=== PATIENT | female | born 1960 | race Two or more races ===

== ENCOUNTER 2018-12-29 00:37 | Emergency (ER) | payer OTHER ==
[2018-12-29 01:12] VITALS: TEMP 98.1; BMI 34.5
--- NOTE | 2018-12-29 01:45 | PDOC ---
History of Present Illness - General Chief Complaint: Pain Stated Complaint: ABD PAIN Time Seen by Provider: 12/29/18 01:45 History Source: Patient Exam Limitations: No Limitations - History of Present Illness Initial Comments: Pt is a 58 yo F, with PMH of pre-DM, who is presenting via car from home for nausea and a "burning" sensation from her upper abdomen up to her throat. Pt had this discomfort after she ate spicy pork for dinner. Pt attempted to take pepcid, tylenol, and lemon juice, which provided minimal relief. Pt has had similar pain before, which normally resolves after she takes pepcid or baking soda. She denies any NSAID use, and has never seen a GI doctor. Pt denies any recent fevers/chills, headache, vision changes, syncope, chest pain, palpitations, SOB, vomiting, urinary symptoms, diarrhea/constipation, or leg swelling. Allergies: NKDA PCP: Dr. Ezio Serrato Social: Pt denies any cigarette, alcohol, or drug use. Pt denies any recent travel or sick contacts. Surgical: no relevant history. Family: no relevant history. 12/29/18 05:01 Past History - Travel Traveled outside of the country in the last 30 days: No Close contact w/someone who was outside of country & ill: No - Past Medical History Allergies/Adverse Reactions: Allergies Allergy/AdvReac Type Severity Reaction Status Date / Time No Known Allergies Allergy Verified 12/29/18 01:19 Home Medications: Ambulatory Orders No Home Medications 0 dose .ROUTE UTDICT 02/21/12 Meclizine HCl [Antivert -] 25 mg PO TID #21 tablet 02/27/14 Omeprazole 20 mg PO DAILY #20 tablet. 12/29/18 Anemia: No Asthma: No Cancer: No Cardiac Disorders: No CVA: No COPD: No CHF: No Dementia: No Diabetes: No GI Disorders: No Disorders: No HTN: Yes (BORDERLINE) Hypercholesterolemia: Yes (diet controlled) Liver Disease: No Seizures: No Thyroid Disease: No - Surgical History Abdominal Surgery: No Appendectomy: Yes Cardiac Surgery: No Cholecystectomy: No Lung Surgery: No Neurologic Surgery: No Orthopedic Surgery: No - Immunization History Immunization Up to Date: Yes - Psycho Social/Smoking Cessation Hx Smoking Status: No Smoking History: Never smoked Have you smoked in the past 12 months: No Number of Cigarettes Smoked Daily: 0 Hx Alcohol Use: No Drug/Substance Use Hx: No Substance Use Type: None Hx Substance Use Treatment: No Abd/GI Specific PMHX - Complaint Specific PMHX Colitis: No Diverticulitis: No Gall Bladder Disease: No GERD: No Hepatitis: No Irritable Bowel Synd (IBS): No Pancreatitis: No GI Ulcer Disease: No Review of Systems - Review of Systems Able to Perform ROS?: Yes Is the patient limited Niuean proficient: No Constitutional: Yes: Weight Stable. No: Chills, Diaphoresis, Fever, Loss of Appetite, Malaise, Weakness HEENTM: No: Recent change in vision, Nose Congestion, Throat Pain, Throat Swelling, Difficulty Swallowing Respiratory: No: Cough, Orthopnea, Shortness of Breath Cardiac (ROS): No: Chest Pain, Edema, Irregular Heart Rate, Lightheadedness, Palpitations, Syncope, Chest Tightness ABD/GI: Yes: See HPI, Nausea, Indigestion. No: Constipated, Diarrhea, Poor Appetite, Poor Fluid Intake, Vomiting : No: Burning, Dysuria, Frequency, Flank Pain, Hematuria, Pain, Urgency Musculoskeletal: No: Back Pain, Joint Pain, Muscle Pain, Muscle Weakness Integumentary: No: Rash Neurological: No: Headache, Numbness, Weakness, Dizziness Psychiatric: No: Sleep Pattern Change, Change in Appetite Endocrine: No: Increased Urine, Change in Weight Hematologic/Lymphatic: No: Anemia, Blood Clots, Easy Bleeding, Easy Bruising All Other Systems: Reviewed and Negative *Physical Exam - Vital Signs Last Vital Signs Temp Pulse Resp BP Pulse Ox 98.1 F 82 17 147/80 98 12/29/18 00:55 12/29/18 00:55 12/29/18 00:55 12/29/18 00:55 12/29/18 00:55 - Physical Exam Comments: Vitals stable, pt afebrile. Pt in NAD, able to sit upright in the bed. Obese body habitus. Pt alert and oriented x3. dust collector generally intact, muscular strength and sensation intact. No midline spinal tenderness, step-offs, or crepitus. Head normocephalic, atraumatic. Eyes PERRLA, EOMI. Oropharynx without erythema or exudates, no LAD b/l. No nasal congestion. Hearing intact. Clear heart sounds, S1/S2, no JVD, b/l pedal edema, or heart murmur. Clear lung sounds, no respiratory distress, wheezes, crackles, or accessory muscle use. Epigastric TTP, with no rebound, no guarding. No CVA TTP. Abdomen soft, non- distended, and with normoactive bowel sounds. Skin without jaundice or rash. 12/29/18 04:59 ED Treatment Course - LABORATORY CBC & Chemistry Diagram: 12/29/18 02:30 12/29/18 02:30 Medical Decision Making - Medical Decision Making Pt was seen at bedside, also will be seen by attending Dr. Ferris. Pt presenting with nausea and epigastric pain after eating spicy food. Likely gastritis, will also evaluate for infection/UTI, ACS, pancreatitis, and possible perforation. Will obtain CBC, CMP, lipase, ECG, troponin, chest x-ray, UA. Provided 30 mg PO maalox, viscous lidocaine, and 4 mg IV zofran for improvement of nausea and discomfort. Will continue to reassess pt and monitor for symptomatic improvement. ECG: NSR, intervals WNL (HR 80, IL 178, QRS 98, QTc 442). No TWIs or significant ST segment changes. No significant changes from prior ECG (02/2014). 12/29/18 05:08 CBC and CMP generally WNL UA negative for infection Trop <.02 Lipase WNL Chest x-ray with no acute pathology, no free air evident under diaphragm. PT still with some epigastric discomfort. Providing 40 mg Protonix and 1 L IV NS. Second troponin to be drawn at 5:30 AM. 12/29/18 05:10 Second trop negative. PT states pain significantly improved. Will send omeprazole to pts pharmacy. Abdomen soft, non-tender. Tolerated PO water in ED. PT can f/u with PCP and will refer to GI. Strict return precautions provided with pt understanding. 12/29/18 06:08 12/29/18 06:16 12/29/18 06:25 Discharge - Discharge Information Problems reviewed: Yes Clinical Impression/Diagnosis: Nausea and vomiting Qualifiers: Vomiting type: unspecified Vomiting Intractability: non-intractable Qualified Code(s): R11.2 - Nausea with vomiting, unspecified Condition: Improved Disposition: HOME - Admission No - Follow up/Referral Referrals: Ezio Serrato MD [Primary Care Provider] - Juan Delgado MD [Staff Physician] - - Patient Discharge Instructions Patient Printed Discharge Instructions: DI for Gastritis Additional Instructions: You were seen in the ER today for abdominal pain and nausea. The results of your labs and imaging today were normal. Please follow-up with your primary care doctor and GI within 1-2 days to discuss your visit and make sure your symptoms have improved. Please return to the ER if you have any worsening pain, development of fevers or chills, loss of consciousness, inability to tolerate food or fluids, or any other concerns. I have sent medications to your pharmacy. Please take these medications as prescribed. - Post Discharge Activity
[2018-12-29] MEDS ORDERED: ACETAMINOPHEN 1000 MG/100 ML VIAL (NON FORMULARY) IVPB ONE (02:16)
[2018-12-29] MEDS ORDERED: ACETAMINOPHEN INJECTION 100 ML IVPB ONE (02:20)
--- NOTE | 2018-12-29 02:21 | PDOC ---
Attending Attestation - Resident Resident Name: PattiBebe - ED Attending Attestation I have performed the following: I have examined & evaluated the patient, The case was reviewed & discussed with the resident, I agree w/resident's findings & plan - HPI HPI: 12/29/18 02:40 Pt comes with epigastric pain; states that she ate spicy sausage and the pain was so intense at 8PM that she was unable to - Physicial Exam PE: 12/29/18 06:14 Normal exam Afebrile Lungs clear abd soft NT ND; epig discomfort - Medical Decision Making 12/29/18 06:15 Pt will be sent home, as all labs and EKG and repeat trop are all WNL. 12/29/18 06:21 Repeat labs normal; pt is stable for d/c/ home. Heart Score/ECG Review - ECG Intrepretation Rhythm: Regular Rhythm - [place]: Normal - P and SD Delta Wave(s) Present: No WPW: No - QRS Poor R Wave Progression: No Q Wave Present: No - ST and T Early Repolarization: No Non Specific ST-T Wave changes: No Flattened T Waves: No Prolonged Q-T Interval: No - ECG Impressions Normal ECG: Yes Non-specific ST Elevation: No Ischemic Changes: No Bradycardia: No Torsades schuyler Pointes: No WPW: No
[2018-12-29] MEDS ORDERED: ONDANSETRON 4 MG/2 ML VIAL IVPUSH ONE (02:28)
[2018-12-29] MEDS ORDERED: LIDOCAINE VISCOUS 2% ORAL/TOP 20 ML UNIT-DOSE CUP MM ONE (02:28)
[2018-12-29] MEDS ORDERED: MAG HYDROX/AL HYDROX/SIMETH 30 ML UNIT-DOSE CUP PO ONE (02:28)
[2018-12-29] MEDS ORDERED: ONDANSETRON 4 MG/2 ML VIAL ONE (02:40)
[2018-12-29] MEDS ORDERED: LIDOCAINE VISCOUS 2% ORAL/TOP 20 ML UNIT-DOSE CUP ONE (02:40)
[2018-12-29] MEDS ORDERED: MAG HYDROX/AL HYDROX/SIMETH 30 ML UNIT-DOSE CUP ONE (02:40)
[2018-12-29 02:44] LABS: BASO % 0.7 % (0-2.0); EOS % 0.3 % (0-4.5); HEMATOCRIT 42.1 % (32.4-45.2); HEMOGLOBIN 14.3 GM/dL (10.7-15.3); LYMPH % 17.7 % (8-40); MCH 30.6 pg (25.7-33.7); MCHC 33.8 g/dl (32.0-36.0); MEAN CELL VOLUME 90.4 fl (80-96); MEAN PLT VOLUME 7.6 fl (7.5-11.1); MONO % 6.7 % (3.8-10.2); NEUT % 74.6 % (42.8-82.8); PLATELET COUNT 335 K/MM3 (134-434); RBC 4.66 M/mm3 (3.60-5.2); RDW 14.1 % (11.6-15.6); URINE APPEARANCE Clear; URINE BILIRUBIN Negative (NEGATIVE); URINE COLOR Yellow; URINE GLUCOSE (UA) Negative (NEGATIVE); URINE KETONE Negative (NEGATIVE); URINE LEUK ESTERASE Negative (NEGATIVE); URINE NITRITE Negative (NEGATIVE); URINE PROTEIN Negative (NEGATIVE); URINE UROBILINOGEN 0.2 mg/dL (0.2-1.0); WHITE BLOOD COUNT 8.2 K/mm3 (4.0-10.0)
[2018-12-29 03:06] LABS: URINE RBC 1 /hpf (0-4); URINE WBC 1 /hpf (0-5)
[2018-12-29 03:18] LABS: ALBUMIN 4.2 g/dl (3.4-5.0); BILIRUBIN,TOTAL 0.4 mg/dL (0.2-1); BLOOD UREA NITROGEN 19.8 mg/dL (7-18); CALCIUM 9.4 mg/dL (8.5-10.1); CREATININE 1.1 mg/dL (0.55-1.3); POTASSIUM 4.2 mmol/L (3.5-5.1); TOT PROT 8.2 g/dl (6.4-8.2)
[2018-12-29] MEDS ORDERED: PANTOPRAZOLE SODIUM 40 MG VIAL IVPUSH ONE (03:38)
[2018-12-29] MEDS ORDERED: SODIUM CHLORIDE 1,000 ML IV STA (03:40)
[2018-12-29] MEDS ORDERED: PANTOPRAZOLE SODIUM 40 MG VIAL ONE (03:57)
[2018-12-29] MEDS ORDERED: PANTOPRAZOLE SODIUM 40 MG/100 ML BAG IVPB ONE (03:59)
[2018-12-29 06:32] VITALS: BP 143/83; PULSE 75
--- NOTE | 2018-12-29 10:15 | EKG ---
Test Reason : Blood Pressure : / mmHG Vent. Rate : 080 BPM Atrial Rate : 080 BPM P-R Int : 178 ms QRS Dur : 098 ms QT Int : 384 ms P-R-T Axes : 052 050 034 degrees QTc Int : 442 ms NORMAL SINUS RHYTHM NORMAL ECG WHEN COMPARED WITH ECG OF 26-FEB-2014 22:40, NO SIGNIFICANT CHANGE WAS FOUND Confirmed by EDMAR MUHAMMAD MD ([id number]) on 12/29/2018 10:15:08 AM Referred By: Confirmed By:EDMAR MUHAMMAD MD
== END 2018-12-29 06:31 | disposition home or self-care (01) ==
LOC: JER 00:37
PROC: 3E0337Z Introduction of Electrolytic and Water Balance Substance into Peripheral Vein, Percutaneous Approach (ICD-10-PCS; principal; 2018-12-29)
PROC: 3E033GC Introduction of Other Therapeutic Substance into Peripheral Vein, Percutaneous Approach (ICD-10-PCS; 2018-12-29)
PROC: 3E033GC Introduction of Other Therapeutic Substance into Peripheral Vein, Percutaneous Approach (ICD-10-PCS; 2018-12-29)
DX: R11.2 Nausea with vomiting, unspecified (principal); I10 Essential (primary) hypertension; R73.03 Prediabetes; E78.00 Pure hypercholesterolemia, unspecified
CPT/HCPCS: 36415; 71045-TC-FY; 80053; 81003; 83690; 84484; 85025; 87086; 93005; 93010; 96361; 96374; 96375; 99283-25; J7030

== ENCOUNTER 2023-04-26 21:56 | Observation (INO) | payer OTHER ==
[2023-04-26 22:05] VITALS: BMI 32.1
[2023-04-26] MEDS ORDERED: ACETAMINOPHEN INJECTION 100 ML IVPB ONE (23:11)
[2023-04-26 23:15] LABS: BASO % 0.4 % (0-2.0); EOS % 0.7 % (0-4.5); HEMATOCRIT 37.2 % (32.4-45.2); HEMOGLOBIN 12.5 GM/dL (10.7-15.3); LYMPH % 10.4 % (8-40); MCH 29.6 pg (25.7-33.7); MCHC 33.6 g/dl (32.0-36.0); MEAN CELL VOLUME 88.2 fl (80-96); MEAN PLT VOLUME 7.2 fl (7.5-11.1); MONO % 11.2 % (3.8-10.2); NEUT % 77.3 % (42.8-82.8); PLATELET COUNT 337 10^3/uL (134-434); RBC 4.22 M/mm3 (3.60-5.2); RDW 14.7 % (11.6-15.6); WHITE BLOOD COUNT 18.3 K/mm3 (4.0-10.0)
[2023-04-26] MEDS: ACETAMINOPHEN 1000 MG/100 ML BAG IVPB ONE (23:16)
[2023-04-26] MEDS: SODIUM CHLORIDE 1,000 ML IV STA (23:16)
[2023-04-26] MEDS ORDERED: IBUPROFEN 600 MG TABLET (FP) PO ONE (23:21)
[2023-04-26 23:23] LABS: INR 1.2 (0.83-1.09); PROTHROMBIN TIME (PATIENT) 13.9 SEC (9.7-13.0)
[2023-04-26 23:25] LABS: ACTIVATED PTT 29.4 SECONDS (25.2-36.5)
[2023-04-26] MEDS: IBUPROFEN 600 MG TABLET (FP) PO ONE (23:44)
[2023-04-26 23:52] LABS: POTASSIUM 4.6 mmol/L (3.5-5.1)
[2023-04-26 23:55] LABS: ALBUMIN 3.1 g/dl (3.4-5.0); BLOOD UREA NITROGEN 15.1 mg/dL (7-18); CALCIUM 8.5 mg/dL (8.5-10.1)
[2023-04-26 23:59] LABS: CREATININE 0.6 mg/dL (0.55-1.3)
[2023-04-27] LABS: BILIRUBIN,TOTAL 0.5 mg/dL (0.2-1); TOT PROT 7.9 g/dl (6.4-8.2)
[2023-04-27 00:40] LABS: EPI CELLS 7 /uL (0-25.1); HYALINE CASTS 0 /uL (0-3.1); URINE APPEARANCE CLEAR; URINE BACTERIA 95 /uL (0-1359); URINE BILIRUBIN NEGATIVE (NEGATIVE); URINE COLOR YELLOW; URINE GLUCOSE (UA) NEGATIVE (NEGATIVE); URINE KETONE NEGATIVE (NEGATIVE); URINE LEUK ESTERASE NEGATIVE (NEGATIVE); URINE NITRITE NEGATIVE (NEGATIVE); URINE PROTEIN TRACE (NEGATIVE); URINE RBC 20 /uL (0-23.9); URINE UROBILINOGEN 0.2 mg/dL (0.2-1.0); URINE WBC 10 /uL (0-25.8)
[2023-04-27] MEDS ORDERED: CEFTRIAXONE 1 GM/50 ML BAG ONE ×2 (00:44→19:50)
[2023-04-27] MEDS ORDERED: DOXYCYCLINE HYCLATE 100 MG VIAL ONE ×4 (00:44→22:10)
[2023-04-27] MEDS: DOXYCYCLINE INJECTION 100 MG in DEXTROSE 5%-WATER 100 ML IVPB ONE (01:11)
[2023-04-27] MEDS: SODIUM CHLORIDE 1,000 ML IV SCH (05:23)
[2023-04-27 06:29] LABS: HEMATOCRIT 36.6 % (32.4-45.2); HEMOGLOBIN 12.1 GM/dL (10.7-15.3); MCH 29.7 pg (25.7-33.7); MEAN PLT VOLUME 7.7 fl (7.5-11.1); PLATELET COUNT 334 10^3/uL (134-434); RBC 4.07 M/mm3 (3.60-5.2); RDW 14.3 % (11.6-15.6); WHITE BLOOD COUNT 17.7 K/mm3 (4.0-10.0)
[2023-04-27 06:44] LABS: POTASSIUM 3.7 mmol/L (3.5-5.1)
[2023-04-27 06:48] LABS: BLOOD UREA NITROGEN 12.4 mg/dL (7-18)
[2023-04-27 06:49] LABS: CALCIUM 8.6 mg/dL (8.5-10.1); MAGNESIUM 2.2 mg/dL (1.8-2.4)
[2023-04-27 06:54] LABS: CREATININE 0.6 mg/dL (0.55-1.3); PHOSPHOROUS 2.5 mg/dL (2.5-4.9)
[2023-04-27 06:55] LABS: TOT PROT 7.2 g/dl (6.4-8.2)
[2023-04-27 06:56] LABS: BILIRUBIN,TOTAL 0.4 mg/dL (0.2-1)
[2023-04-27] MEDS: INSULIN ASPART SLIDING SCALE (NOVOLOG) 1 VIAL SQ SCH (07:57)
[2023-04-27] MEDS ORDERED: ENOXAPARIN NA (PORCINE) 40 MG/0.4 ML DISP.SYRIN SQ ONE (11:50)
[2023-04-27] MEDS: ENOXAPARIN NA (PORCINE) 40 MG/0.4 ML DISP.SYRIN SQ SCH (11:55)
[2023-04-27] MEDS: DOXYCYCLINE INJECTION 100 MG in DEXTROSE 5%-WATER 100 ML IVPB SCH (11:55)
[2023-04-27] MEDS: CEFTRIAXONE 1 GM in DEXTROSE 5%-WATER - 50 ML IVPB SCH (19:57)
[2023-04-27] MEDS ORDERED: ACETAMINOPHEN INJECTION 100 ML IVPB ONE (21:00)
[2023-04-27] MEDS: ACETAMINOPHEN 1000 MG/100 ML BAG IVPB ONE (21:01)
[2023-04-28] MEDS: ACETAMINOPHEN 1000 MG/100 ML BAG IVPB ONE ×2 (05:19→20:39)
[2023-04-28 08:08] LABS: BASO % 0.5 % (0-2.0); EOS % 0.4 % (0-4.5); HEMOGLOBIN 11.7 GM/dL (10.7-15.3); LYMPH % 10.4 % (8-40); MCH 29.7 pg (25.7-33.7); MCHC 33.4 g/dl (32.0-36.0); MEAN CELL VOLUME 88.8 fl (80-96); MEAN PLT VOLUME 7.7 fl (7.5-11.1); MONO % 9.8 % (3.8-10.2); NEUT % 78.9 % (42.8-82.8); PLATELET COUNT 358 10^3/uL (134-434); RBC 3.95 M/mm3 (3.60-5.2); RDW 14.6 % (11.6-15.6); WHITE BLOOD COUNT 17.1 K/mm3 (4.0-10.0)
[2023-04-28 08:25] LABS: POTASSIUM 3.5 mmol/L (3.5-5.1)
[2023-04-28 08:29] LABS: BLOOD UREA NITROGEN 8.4 mg/dL (7-18); CALCIUM 8.5 mg/dL (8.5-10.1)
[2023-04-28 08:31] LABS: ALBUMIN 2.8 g/dl (3.4-5.0)
[2023-04-28 08:32] LABS: CREATININE 0.6 mg/dL (0.55-1.3)
[2023-04-28 08:33] LABS: BILIRUBIN,TOTAL 0.4 mg/dL (0.2-1)
[2023-04-28 08:34] LABS: TOT PROT 7.1 g/dl (6.4-8.2)
[2023-04-28] MEDS ORDERED: ENOXAPARIN NA (PORCINE) 40 MG/0.4 ML DISP.SYRIN SQ ONE (09:08)
[2023-04-28] MEDS ORDERED: CEFTRIAXONE 1 GM/50 ML BAG ONE (09:08)
[2023-04-28] MEDS ORDERED: DOXYCYCLINE HYCLATE 100 MG VIAL ONE (09:53)
[2023-04-28 15:23] VITALS: RESP 18
[2023-04-28 20:47] VITALS: BP 120/85; PULSE 92; TEMP 99.2
[2023-04-28] MEDS ORDERED: DOXYCYCLINE HYCLATE 100 MG CAPSULE PO ONE (21:49)
[2023-04-28] MEDS: DOXYCYCLINE HYCLATE 100 MG CAPSULE PO ONE (21:54)
== END 2023-04-28 22:18 | disposition home or self-care (01) ==
LOC: JER 21:56 → JERBED 23:48
PROVIDERS: ADMIT Internal Medicine
PROC: 3E033NZ Introduction of Analgesics, Hypnotics, Sedatives into Peripheral Vein, Percutaneous Approach (ICD-10-PCS; principal; 2023-04-26)
PROC: 3E03329 Introduction of Other Anti-infective into Peripheral Vein, Percutaneous Approach (ICD-10-PCS; 2023-04-26)
PROC: 3E023GC Introduction of Other Therapeutic Substance into Muscle, Percutaneous Approach (ICD-10-PCS; 2023-04-26)
PROC: 3E0337Z Introduction of Electrolytic and Water Balance Substance into Peripheral Vein, Percutaneous Approach (ICD-10-PCS; 2023-04-26)
DX: J18.9 Pneumonia, unspecified organism (principal); R50.9 Fever, unspecified; R73.03 Prediabetes; D72.829 Elevated white blood cell count, unspecified
CPT/HCPCS: 0241U-QW; 36415; 71045-TC-FY; 71250-TC; 80053; 81003; 82962; 83735; 84100; 84132; 85025; 85027; 85610; 85730; 87040; 87081; 87086; 87899; 93005; 93010; 96361; 96365; 96366; 96367; 96372; 96375; 96376; 99285-25; G0378; J0131